=== PATIENT | female | born 2000 | race Caucasian/White ===

== ENCOUNTER 2022-05-31 19:12 | Emergency (ER) | payer MEDICAID, OTHER ==
[~2022-05-31] VITALS: Ht 180.3 cm; Wt 90.0 kg
[2022-05-31 19:39] VITALS: BP 134/90
== END 2022-06-01 10:00 | disposition left against medical advice (07) ==
LOC: ER 19:12 → EDBD 19:12 → ER 06-01 10:00
DX: S81.012A Laceration without foreign body, left knee, initial encounter (principal); Z53.21 Procedure and treatment not carried out due to patient leaving prior to being seen by health care provider; V43.52XA Car driver injured in collision with other type car in traffic accident, initial encounter; Y93.89 Activity, other specified; Y92.89 Other specified places as the place of occurrence of the external cause; Y99.8 Other external cause status